=== PATIENT | male | born 1985 | race Caucasian/White ===

== ENCOUNTER 2016-09-07 12:46 | Emergency (ER) | payer OTHER ==
[~2016-09-07 12:46] MED LIST: ALPRAZOLAM0.5 MG PO; CHLORDIAZEPOXID25 M3 PO; CLONAZEPAM0.5 M2 PO; FLUOXETINE HCL20 M2 PO; XANAX0.5 MG PO; ZOFRAN ODT4 M1 SL; ZUBSOLV PO; ZUBSOLV SL
--- NOTE | 2016-09-07 12:53 | ED GENERAL ADULT ---
See Addendum History of Present Illness General Chief Complaint: ETOH/Drug Related Complaint Stated Complaint: ETOH Source: patient, family Exam Limitations: intoxication Vital Signs & Intake/Output Vital Signs & Intake/Output Vital Signs Date Time Temp Pulse Resp B/P Pulse O2 O2 Flow FiO2 Ox Delivery Rate 09/07 1527 95.4 82 16 124/75 02/06 1527 95.4 82 16 124/75 95 Room Air / 1410 Room Air 09/07 1253 98.5 105 15 138/64 92 Room Air Allergies Coded Allergies: NO KNOWN ALLERGIES (06/04/14) Reconcile Medications Fluoxetine HCl 20 MG CAPSULE 1 CAP PO DAILY MENTAL HEALTH (Reported) Triage Note: PT BIBA FOR ETOH. PT'S FRIENDS FOUND HIM UNDER THE COVERS WITH A BOTTLE OF BLACKBERRY KOLBY ON THE TABLE. PT DENIES SI/HI. Triage Nurses Notes Reviewed? yes Onset: Abrupt Duration: day(s): Timing: recent history HPI: 09/07/16 2:30 PM 31-year-old male brought in by ambulance for alcohol intoxication. The patient denies any complaints says He does admit to drinking alcohol today. No abdominal pain headache, trauma or other complaints. The onset of the symptoms was abrupt, the duration is unknown, the severity is unknown. Past History Medical History Any Pertinent Medical History? see below for history Musculoskeletal: OSTEOPENIA Psychiatric: alcohol dependence, OCD Surgical History Surgical History: unobtainable Psychosocial History Who do you live with Patient/Self What is your primary language Kiswahili Family History Hx Contributory? No Review of Systems Review of Systems Constitutional: Reports: no symptoms. EENTM: Reports: no symptoms. Respiratory: Reports: no symptoms. Cardiovascular: Reports: no symptoms. GI: Reports: no symptoms. Genitourinary: Reports: no symptoms. Musculoskeletal: Reports: no symptoms. Skin: Reports: no symptoms. Neurological/Psychological: Reports: other (INTOXICATED). Hematologic/Endocrine: Denies: bruising, bleeding. Physical Exam Physical Exam General Appearance: alert, anxious, mild distress Head: atraumatic, normal appearance Eyes: Bilateral: normal appearance, PERRL, EOMI. Ears, Nose, Throat: normal pharynx, normal ENT inspection Neck: normal inspection, supple Respiratory: normal breath sounds, chest non-tender Cardiovascular: regular rate/rhythm Peripheral Pulses: 4+ radial (R), 4+ radial (L) Gastrointestinal: soft, non-tender Back: normal range of motion Extremities: normal inspection, normal range of motion Neurologic/Psych: no motor/sensory deficits, oriented x 3 Skin: intact, normal color, warm/dry Core Measures ACS in differential dx? No CVA/TIA Diagnosis: No Severe Sepsis Present: No Septic Shock Present: No Progress Differential Diagnoses I considered the following diagnoses in my evaluation of the patient: [Alcohol intoxication, drug overdose, polysubstance abuse] Plan of Care: Orders Procedure Date/time Status Continuous Observation Monitor 09/07 1428 Active CIWA 09/07 1427 Active URINE DRUG SCREEN FOR ER ONLY 09/07 1427 Complete ACETOMINOPHEN 09/07 1427 Complete SALICYLATE 09/07 1427 Complete ETHANOL 09/07 1427 Complete COMPREHENSIVE METABOLIC PANEL 09/07 1427 Complete CBC WITHOUT DIFFERENTIAL 09/07 1427 Complete Laboratory Tests 09/07/16 1440: Anion Gap 15, Estimated GFR > 60, BUN/Creatinine Ratio 10.0, Glucose 104 H, Calcium 8.7, Total Bilirubin 0.7, AST 22, ALT 34, Alkaline Phosphatase 66, Total Protein 7.3, Albumin 4.6, Globulin 2.7, Albumin/Globulin Ratio 1.7, CBC w Diff NO MAN DIFF REQ, RBC 5.40, MCV 90.6, MCH 30.6, RDW 13.6, MPV 8.2, Gran % 59.0, Lymphocytes % 31.4, Monocytes % 8.6, Eosinophils % 0.8, Basophils % 0.2, Absolute Granulocytes 3.8, Absolute Lymphocytes 2.0, Absolute Monocytes 0.6, Absolute Eosinophils 0.1, Absolute Basophils 0, PUBS MCHC 33.7, Salicylates < 1.0, Acetaminophen < 10.0 L, Serum Alcohol 319.0 09/07/16 1435: Urine Opiates Screen < 100.00, Methadone Screen < 40, Barbiturate Screen < 60, Ur Phencyclidine Scrn < 6.00, Amphetamines Screen < 100, U Benzodiazepines Scrn < 85, Urine Cocaine Screen < 50, Urine Cannabis Screen < 5.00 09/07/16 1430: Salicylates Cancelled, Acetaminophen Cancelled Initial ED EKG: none Departure Departure Disposition: STILL A PATIENT Condition: Stable Clinical Impression Primary Impression: Alcohol intoxication Referrals: PATIENT HAS NO PRIMARY CARE DR Departure Forms: Customer Survey General Discharge Information Comments 09/07/16 4:37 PM The patient's mother and sister are here. They will pick the patient up 8 PM. They will facilitate having him transferred back to the [facility] [place] in [place] that was caring for him. The patient is agreeable to the plan. He is awake alert and oriented 3 on reevaluation. Breathalyzer was 300. His brother will pick him up today p.m. The patient will be signed out to Dr. Barker at 7 PM. Critical Care Note Critical Care Note Critical Care Time: 30-74 min
[2016-09-07 14:59] LABS: ABSOLUTE BASOPHIL COUNT 0 /CUMM (0.0-0.2); ABSOLUTE EOSINOPHIL COUNT 0.1 /CUMM (0.0-0.7); ABSOLUTE GRANULOCYTE CT 3.8 /CUMM (1.4-6.5); ABSOLUTE MONOCYTE COUNT 0.6 /CUMM (0.10-0.60); BASOPHIL % 0.2 % (0.0-2.0); EOSINOPHIL % 0.8 % (0-5); HEMATOCRIT 48.9 % (42-52); MEAN CORPUSCULAR HGB 30.6 PG (27.0-31.0); MEAN CORPUSCULAR HGB CONC 33.7 G/DL (33.0-37.0); MEAN CORPUSCULAR VOLUME 90.6 FL (80.0-94.0); MEAN PLATELET VOLUME 8.2 FL (7.4-10.4); PLATELET COUNT 256 /CUMM (130-400); RBC DISTRIBUTION WIDTH 13.6 % (11.5-14.5); WHITE BLOOD CELL COUNT 6.4 /CUMM (4.8-10.8)
[2016-09-07 19:45] VITALS: BP 125/80
== END 2016-09-07 20:27 ==
LOC: ERH 12:46
PROVIDERS: Emergency Medicine
DX: F10.129 Alcohol abuse with intoxication, unspecified (principal)
CPT/HCPCS: 80307; G0480